=== PATIENT | female | born 1980 | race Caucasian/White ===

== ENCOUNTER 2021-12-23 15:14 | Emergency (ER) | payer OTHER ==
[2021-12-23 15:28] VITALS: TEMP 97.8; BMI 19.8
[2021-12-23] MEDS ORDERED: methylPREDNISolone NA SUCC 40 MG/1 ML VIAL IVPUSH ONE (15:29)
[2021-12-23] MEDS ORDERED: FAMOTIDINE 20 MG/50 ML IVPB 20 MG/50 ML MG IVPB ONE ×2 (15:30→15:35)
[2021-12-23] MEDS ORDERED: methylPREDNISolone NA SUCC 40 MG/1 ML VIAL ONE (15:35)
[2021-12-23] MEDS ORDERED: SODIUM CHLORIDE 0.9% 1000 ML INFUS.BAG IV ONE (15:49)
[2021-12-23 16:46] VITALS: BP 119/79; PULSE 72
== END 2021-12-23 16:45 | disposition home or self-care (01) ==
LOC: FER 15:14
PROC: 3E033GC Introduction of Other Therapeutic Substance into Peripheral Vein, Percutaneous Approach (ICD-10-PCS; principal; 2021-12-23)
PROC: 3E033GC Introduction of Other Therapeutic Substance into Peripheral Vein, Percutaneous Approach (ICD-10-PCS; 2021-12-23)
PROC: 3E033GC Introduction of Other Therapeutic Substance into Peripheral Vein, Percutaneous Approach (ICD-10-PCS; 2021-12-23)
DX: T63.441A Toxic effect of venom of bees, accidental (unintentional), initial encounter (principal)
CPT/HCPCS: 99284-25

== ENCOUNTER 2022-01-22 19:36 | Emergency (ER) | payer OTHER ==
[2022-01-22 19:49] VITALS: BP 138/99; PULSE 70; RESP 17; TEMP 98.9; BMI 19.8
[2022-01-22] MEDS ORDERED: ACETAMINOPHEN 500 MG TABLET (FP) PO ONE (20:19)
[2022-01-22] MEDS ORDERED: ACETAMINOPHEN 500 MG TABLET (FP) ONE (20:19)
== END 2022-01-22 22:28 | disposition home or self-care (01) ==
LOC: FER 19:36
DX: S02.2XXA Fracture of nasal bones, initial encounter for closed fracture (principal); S00.12XA Contusion of left eyelid and periocular area, initial encounter
CPT/HCPCS: 70450-TC; 70486-TC; 81025; 99284-25